=== PATIENT | female | born 1950 | race Caucasian/White ===

== ENCOUNTER → 2020-12-09 | Outpatient (CLI) | payer MEDICARE ==
[~2020-12-09] MED LIST: OMNIPAQUE 350 MG/ML, 100ML BOTTLE ONE
== END | disposition home or self-care (01) ==
LOC: CFH 12:03
PROVIDERS: ATTEND Family Medicine
DX: D73.4 Cyst of spleen (principal); I70.0 Atherosclerosis of aorta; R10.12 Left upper quadrant pain
CPT/HCPCS: 74177; 82565; Q9967